=== PATIENT | female | born 1950 | race Asian ===

== ENCOUNTER → 2020-07-30 | Outpatient (CLI) | payer MEDICARE, OTHER ==
--- NOTE | 2020-07-30 18:49 | NEURO WORKBENCH EEG REPORT ---
EEG Report Patient: Carla Moreno ID: [id number] Referring Doctor: Fidel Dennis MD DOS: 07/30/2020 Medications: nitrofurantoin, estradiol, ondansetron, tamsulosin, acetaminophen, docusate, senna, polyethylene, diclofenac History This is a 70 year old right handed female with a history of COPD, asthma, breast cancer, knee replacements, hip replacement, hypercholesterolemia, tremors. This EEG was requested for weakness, slurred speech, slowness and poor responsiveness. EEG Interpretation This EEG was recorded in the awake and minimal drowsy states. The awake EEG is characterized by a well-organized background with a well-developed and reactive posterior dominant rhythm of 8 Hz. The remainder of the background was characterized by a combination of alpha with some beta frequencies. Minimal drowsiness was characterized by slowing of the background rhythms. Photic stimulation resulted in a good driving response. There were no epileptiform abnormalities. The EKG showed a regular rhythm. EEG Classification * Generalized background slowing, mild EEG Impression This EEG is mildly abnormal for age. It is consistent with mild diffuse cerebral dysfunction. INTERPRETING NEUROLOGIST: Nieves Greene MD, [facility] Board Certified in Neurology, with special qualification in Child Neurology, and in Clinical Neurophysiology [facility]
== END ==
LOC: NEURO 12:50
PROVIDERS: ATTEND Pediatrics
DX: R53.1 Weakness (principal); R47.81 Slurred speech; R46.4 Slowness and poor responsiveness
CPT/HCPCS: 95819